=== PATIENT | female | born 1995 | race Caucasian/White ===

== ENCOUNTER 2018-03-02 19:04 | Emergency (ER) | payer BC ==
[~2018-03-02] VITALS: Ht 157.5 cm; Wt 59.1 kg
[2018-03-02 19:06] VITALS: TEMP 98.6
[2018-03-02] MEDS ORDERED: BIRTH CONTROL (19:08)
[2018-03-02] MEDS ORDERED: NORCO 325 MG-51 TAB PO (21:05)
[2018-03-02 21:24] VITALS: BP 118/68; PULSE 88
== END 2018-03-02 21:26 | disposition home or self-care (01) ==
LOC: COL.ER 19:04
DX: S43.005A Unspecified dislocation of left shoulder joint, initial encounter (principal); W18.39XA Other fall on same level, initial encounter; Y93.02 Activity, running
CPT/HCPCS: J2060; J2405; J3010; J7030